=== PATIENT | female | born 1970 | race Caucasian/White ===

== ENCOUNTER 2019-08-26 12:45 | Emergency (ER) | payer OTHER ==
[~2019-08-26] VITALS: Ht 162.6 cm; Wt 47.6 kg
== END 2019-08-26 14:49 | disposition left against medical advice (07) ==
LOC: ER 12:45
DX: Z53.21 Procedure and treatment not carried out due to patient leaving prior to being seen by health care provider (principal)
CPT/HCPCS: 99282

== ENCOUNTER → 2019-09-13 | Outpatient (CLI) | payer OTHER ==
[~2019-09-13] MED LIST: ALBU90OI; CYCL10; GABA100
[2019-09-17 14:34] LABS: Stool Occult Bld Immuno 1 Positive (NEGATIVE)
== END ==
LOC: LAB SHORT 14:00 → LAB 14:00
PROVIDERS: Nurse Practitioner Family
DX: K92.1 Melena (principal); Z87.11 Personal history of peptic ulcer disease
CPT/HCPCS: 82274

== ENCOUNTER 2019-10-28 08:39 | Day surgery (SDC) | payer OTHER ==
[~2019-10-28] VITALS: Ht 162.6 cm; Wt 46.7 kg
--- NOTE | 2019-10-28 09:01 | NUR ---
10/28/[address] AWARE PT WAS ONLY ABLE TO DRINK HALF OF THE FIRST BOTTLE AND VOMITTED ALL OF IT UP. LEFT IT UP TO PT WHETHER SHE WANTS TO PROCEED WITH COLONOSCOPY OR NOT. IT WAS AGREED TO PROCEED ONLY WITH THE UPPER ENDOSCOPY. PT HAD SOLID BROWN STOOLS THIS MORNING
== END 2019-10-28 09:57 | disposition home or self-care (01) ==
LOC: ORSCSDS 08:39
PROVIDERS: Student in an Organized Health Care Education/Training Program
PROC: 0DB68ZX Excision of Stomach, Via Natural or Artificial Opening Endoscopic, Diagnostic (ICD-10-PCS; principal; 2019-10-28 09:45)
PROC: 0DB58ZX Excision of Esophagus, Via Natural or Artificial Opening Endoscopic, Diagnostic (ICD-10-PCS; principal; 2019-10-28 09:45)
PROC: 0DB48ZX Excision of Esophagogastric Junction, Via Natural or Artificial Opening Endoscopic, Diagnostic (ICD-10-PCS; principal; 2019-10-28 09:45)
DX: R10.13 Epigastric pain (principal); R13.10 Dysphagia, unspecified; K92.1 Melena; K21.0 Gastro-esophageal reflux disease with esophagitis; J44.9 Chronic obstructive pulmonary disease, unspecified; K44.9 Diaphragmatic hernia without obstruction or gangrene; F17.210 Nicotine dependence, cigarettes, uncomplicated; Z79.899 Other long term (current) drug therapy
CPT/HCPCS: 88305; 88341; 88342; J2704; J7120

== ENCOUNTER 2023-01-22 23:36 | Emergency (ER) | payer OTHER ==
[~2023-01-22] VITALS: Ht 162.6 cm; Wt 49.9 kg
[2023-01-23 04:24] VITALS: BP 134/67
[2023-01-23] MEDS ORDERED: AMOCLA875 PO (05:07)
== END 2023-01-23 05:16 | disposition home or self-care (01) ==
LOC: ER 23:36
DX: S61.452A Open bite of left hand, initial encounter (principal); S61.451A Open bite of right hand, initial encounter; W54.0XXA Bitten by dog, initial encounter; F17.200 Nicotine dependence, unspecified, uncomplicated
CPT/HCPCS: 73100; 73120; 90375; 90376; 90471; 90715; 96372; 99283; A9270; J1885